=== PATIENT | male | born 1990 | race American Indian/Alaskan Native ===

== ENCOUNTER 2019-04-27 06:48 | Emergency (ER) | payer OTHER ==
[2019-04-27 06:59] VITALS: BP 163/114
[2019-04-27] MEDS ORDERED: ACETAMINOPHEN 500 MG TAB PO ONE (07:36)
[2019-04-27] MEDS ORDERED: TETANUS,DIPH,PERTUSS(ACELL) VACCINE 0.5 ML SYRINGE IM ONE (07:36)
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
[2019-04-27] MEDS ORDERED: LIDOCAINE (1%) 10 MG/1 ML VIAL 20 ML MDV INFILTRATI ONE (08:24)
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
[2019-04-27] MEDS ORDERED: SODIUM CHLORIDE IRRI 500 ML 500 ML IR ONE (08:59)
[2019-04-27] MEDS ORDERED: NEOMY 3.5 MG/BACIT 400 UNITS/POLY B 5000 UNITS/GM OINT PACKET TP ONE ×2 (09:38→09:39)
[2019-04-27] MEDS ORDERED: BACITRACIN/POLYMYXIN B OINT 28.35 GM TP ONE (10:00)
== END 2019-04-27 09:43 | disposition home or self-care (01) ==
LOC: ED 06:48
DX: S01.21XA Laceration without foreign body of nose, initial encounter (principal); V49.49XA Driver injured in collision with other motor vehicles in traffic accident, initial encounter; Y93.89 Activity, other specified; Y92.410 Unspecified street and highway as the place of occurrence of the external cause; Y99.8 Other external cause status
CPT/HCPCS: 70450; 70486; 90715; A6250

== ENCOUNTER 2019-05-09 10:59 | Emergency (ER) | payer SELFPAY ==
[2019-05-09 11:11] VITALS: BP 145/86
--- NOTE | 2019-05-09 12:28 | Emergency Department Report ---
Suture/Staple Removal - HPI Chief Complaint: Laceration/Recheck/Suture Stated Complaint: SUTURE REMOVAL Time Seen by Provider: 05/09/19 11:58 When Sutures or Susan Placed: 04/27/19 Wound Location: middle of nasal vestibule ED Review of Systems ROS: Stated complaint: SUTURE REMOVAL Other details as noted in HPI Comment: All other systems reviewed and negative ED Past Medical Hx - Past Medical History Previous Medical History?: No - Surgical History Past Surgical History?: No - Social History Smoking Status: Never Smoker Substance Use Type: None - Medications Home Medications: Home Medications Medication Instructions Recorded Confirmed Last Taken Type Cyclobenzaprine [Flexeril] 10 mg PO TID PRN #30 tablet 04/27/19 Unknown Rx Naproxen [EC-Naprosyn] 500 mg PO BID PRN #20 tablet. 04/27/19 Unknown Rx Suture Removal Exam - Exam General: Vital signs noted. No distress. Alert and acting appropriately. Wound: No Pathologic Erythema, No Tenderness, No Drainage, No Pus, No Wound Dehiscence Other Systems: All other systems reviewed and are unremarkable. ED Course Vital Signs 05/09/19 11:11 Temperature 98.4 F Pulse Rate 67 Respiratory 16 Rate Blood Pressure 145/86 O2 Sat by Pulse 96 Oximetry ED Recheck MDM - Medical Decision Making healed wound present to the vestibule of the nose, there are 4 sutures present, appears clean, dry, intact without signs of infection, all sutures removed, pt tolerated well, no complications, no wound dehiscence advised pt please continue to keep area clean, dry, covered. wash with soap and water and immediately dry. no hot tub, pool, or soaking in water. follow up with a primary care doctor. return to the emergency room for any new or worsening symptoms. Critical care attestation.: If time is entered above; I have spent that time in minutes in the direct care of this critically ill patient, excluding procedure time. ED Disposition Clinical Impression: Visit for suture removal Disposition: DC-01 TO HOME OR SELFCARE Is pt being admited?: No Does the pt Need Aspirin: No Condition: Stable Instructions: Suture Removal (ED) Additional Instructions: please continue to keep area clean, dry, covered. wash with soap and water and immediately dry. no hot tub, pool, or soaking in water. follow up with a primary care doctor. return to the emergency room for any new or worsening symptoms. Referrals: HESHAM WATERMAN MD [Staff Physician] - 2-3 Days [facility] [Outside] - 2-3 Days Time of Disposition: 12:27 Print Language: NAMIBIAN
== END 2019-05-09 12:57 | disposition home or self-care (01) ==
LOC: ED 10:59
DX: Z48.02 Encounter for removal of sutures (principal); Z53.21 Procedure and treatment not carried out due to patient leaving prior to being seen by health care provider

== ENCOUNTER 2019-09-28 19:24 | Emergency (ER) | payer SELFPAY | END 2019-09-28 20:01 | disposition left against medical advice (07) | LOC: ED 19:24 | DX: R10.9 Unspecified abdominal pain (principal); R11.10 Vomiting, unspecified; Z53.21 Procedure and treatment not carried out due to patient leaving prior to being seen by health care provider ==